=== PATIENT | male | born 2000 | race Caucasian/White ===

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

== ENCOUNTER → 2022-02-27 | Outpatient (CLI) | payer OTHER, SELFPAY ==
--- NOTE | 2022-02-27 16:28 | RAD_ITS ---
EXAM: XR LEFT HAND COMPLETE, 3 OR MORE VIEWS CLINICAL INDICATION: INFLAMMATORY POLYARTHRITIS TECHNIQUE: Frontal, lateral and oblique views of the left hand. This report was created using [employer] report generation technology. COMPARISON: None. FINDINGS: BONES/JOINTS: No periarticular erosion. No acute fracture. No subluxation. Normal alignment. Preservation of the joint space. No sclerotic or destructive changes observed. SOFT TISSUES: Mild periarticular soft tissue swelling. No radiopaque foreign body. RAD/Hand Min 3 Views IMPRESSION: Mild periarticular soft tissue swelling which may represent early changes of inflammatory arthritis. Electronically Signed: Suresh Maurice MD at 7:21 EDT ,
--- NOTE | 2022-02-27 16:28 | RAD_ITS ---
EXAM: XR RIGHT HAND COMPLETE, 3 OR MORE VIEWS CLINICAL INDICATION: INFLAMMATORY POLYARTHRITIS TECHNIQUE: Frontal, lateral and oblique views of the right hand. This report was created using [employer] report generation technology. COMPARISON: None. FINDINGS: BONES/JOINTS: Unremarkable. No acute fracture. No subluxation. Normal alignment. Preservation of the joint space. No periarticular erosion. No sclerotic or destructive changes observed. SOFT TISSUES: Periarticular soft tissue swelling is noted. No radiopaque foreign body. RAD/Hand Min 3 Views IMPRESSION: Periarticular soft tissue swelling which may represent early changes of inflammatory arthritis. Electronically Signed: Suresh Maurice MD at 7:20 EDT ,
[2022-02-27 17:32] LABS: Absolute Lymphocyte Count 2.47 X10^3/uL (0.83-4.51); Absolute Neutrophil Count 2.6 X10^3/uL (2.0-7.7); Basophil# 0.03 X10^3/uL; Basophil% 0.5 % (0-1); Eosinophil# 0.11 X10^3/uL; Eosinophils% 1.9 % (0-5); Hematocrit 43.3 % (40-54); Hemoglobin 15.1 g/dL (13.0-16.5); Lymphocyte # 2.47 X10^3/ul (0.83-4.51); Lymphocyte % 43.6 % (19-41); Mean Corp Hgb Conc 34.9 g/dL (32-36); Mean Corpuscular Hgb 30.1 pg (27.0-32.0); Mean Corpuscular Volume 86.3 fL (80-94); Mean Platelet Vol. 9.7 fl (6.2-12.0); Monocyte# 0.48 X10^3/uL; Monocyte% 8.5 % (0-10); NRBC Flagged by Analyzer 0 % (0-5); Neutrophil # 2.56 X10^3/uL (2.7-7.7); Neutrophil % 45.3 % (47-70); Platelet Count 285 K/mm3 (150-450); RBC Distribution Width CV 12.5 % (11.6-14.6); RBC Distribution Width SD 39.5 fl (35.1-43.9); Red Blood Count 5.02 M/mm3 (4.6-6.2); White Blood Count 5.7 K/mm3 (4.4-11.0)
[2022-02-27 18:04] LABS: ALB/GLOB Ratio 1.3 RATIO (0.9-2.4); AST(SGOT) 17 U/L (15-37); Alanine Aminotransfer ALT/SGPT 20 U/L (16-61); Albumin, Serum 4.4 g/dL (3.2-5.0); Alkaline Phosphatase 92 U/L (45-117); Anion Gap 8 (5-15); BUN 11 mg/dL (7-18); BUN/Creat Ratio 12.1 RATIO (10-20); Chloride 105 mmol/L (98-107); Creatinine, Serum 0.91 mg/dL (0.70-1.30); EST Glomerular Filtration Rate 113 mL/min (>60); Est Glom Filt Rate - Afr Amer 137 mL/min (>60); Globulin 3.3 g/dL (2.2-4.2); Glucose 89 mg/dL (74-106); Potassium 3.6 mmol/L (3.5-5.1); Protein, Total 7.7 g/dL (6.4-8.2); Rheumatoid Factor < 10.0 IU/mL (<15); Sodium Level 139 mmol/L (136-145)
[2022-03-02 12:10] LABS: ANTINUCLEAR ANTIBODIES DIRECT Negative (Negative)
== END | disposition home or self-care (01) ==
LOC: MTLAB 16:24
PROVIDERS: PCP Family Medicine; Referring Provider Family Medicine; Visit Provider Family Medicine
DX: M06.4 Inflammatory polyarthropathy (principal)
CPT/HCPCS: 36415; 73130; 80053; 85025; 86038; 86431

== ENCOUNTER → 2025-07-27 | Outpatient (CLI) | payer OTHER, SELFPAY ==
--- NOTE | 2025-07-27 13:52 | RAD_ITS ---
PROCEDURE: SHOULDER MIN 2 VIEWS 07/27/2025 REASON FOR EXAM: LEFT SHOULDER PAIN, DISLOCATION TECHNIQUE: Procedure Code: RADSH Modality: DX Procedure: SHOULDER MIN 2 VIEWS Laterality: Left shoulder. COMPARISON: None FINDINGS: Bones: No fracture seen. Joints: Normal alignment of the acromioclavicular and glenohumeral joints. Soft tissues: Focal calcific tendinitis. Other: RAD/Shoulder min 2 Views IMPRESSION: Calcific tendinitis. Reading Location: [id number]
--- OUTSIDE RECORDS SUMMARY | 2025-07-27 20:07 | XMS RPT_ITS | CCD ---
Author Organization [facility] Care Team Providers Care [address] Bailiff Name Role Phone MOJGAN HUSSEIN (MOHSEN) Unavailable UnavailLAYTON Zhu Unavailable Unavailable PENA, LAWRENCE Unavailable Unavailable PENA, LAWRENCE Unavailable Unavailable PENA, LAWRENCE Unavailable Unavailable MASCHKE, LEV Unavailable Unavailable PENA, LAWRENCE Unavailable Unavailable MASCHKE, LEV Unavailable Unavailable MASCHKE, LEV Unavailable Unavailable SILVERIO, MAYANK Unavailable Unavailable REFERRED, SELF Unavailable Unavailable SILVERIO, MAYANK Unavailable Unavailable Steven Bowles Referring Unavailable Steven Bowles Attending Unavailable Steven Bowles Primary Care Unavailable Problems Problem Classification Problem Date Documented Da te Episodic/Chronic Fracture of upper limb (1 source) Displaced fracture (avulsion) of medial epicondyle of left humerus, subsequent encounter for fracture with routine healing; Translations: [Displaced fracture (avulsion) of medial epicondyle of left humerus, subsequent encounter for fracture with routine healing] Onset: 05-20-2018 Episodic Joint disorders and dislocations; trauma-related (1 source) Unspecified dislocation of left ulnohumeral joint, subsequent encounter; Translations: [Unspecified dislocation of left ulnohumeral joint, subsequent encounter] Onset: 03-21-2018 Episodic Rheumatoid arthritis and related disease (1 source) Inflammatory polyarthropathy; Translations: [Inflammatory polyarthropathy] Onset: 09-19-2022 Chronic Unclassified (1 source) Unknown / UNK(Unknown) Onset: 02-25-2018 Results Test Name Value Interpretation Reference Range Facility ANTINUCLEAR ANTIBODIES DIREC Ton 03-02-2022 ANALI,DIRECT Negative Normal Negative [facility] Comment on above: Order Comment: Order Date: 02/27/22 Order Info: 0270-1 - ANALI Comments: with reflex comprehensive panel if positive Result Comment: Perf ormed at: - [facility] [address] [id number] Consulting Services Manager: Darwin Moody PhD, Phone: [phone] Performed By: #### L 100.0100, L500.4050, L505.7010, L3100.5475 #### [facility] [address] [place], [address] CBC W/Diff, Automatedon 07- Absolute Lymph 2.47 X10 3/uL Normal 0.83-4.51 [facility] Comment on above: Order Comment: Order Date: 02/27/22 Order Info: 0184-1 - CBCD Performed By: #### L 100.0100, L500.4050, L505.7010, L3100.5475 #### [facility] [address] [place], [address] Absolute Neut 2.6 X10 3/uL Normal 2.0-7.7 [facility] Comment on above: Order Comment: Order Date: 02/27/22 Order Info: 0184-1 - CBCD Performed By: #### L 100.0100, L500.4050, L505.7010, L3100.5475 #### [facility] [address] [place], [address] Basophils/100 WBC (Bld) 0.5 % Normal 0-1 [facility] Comment on above: Order Comment: Order Date: 02/27/22 Order Info: 0184-1 - CBCD Performed By: #### L 100.0100, L500.4050, L505.7010, L3100.5475 #### [facility] [address] [place], [address] Eosinophils/100 WBC (Bld) 1.9 % Normal 0-5 [facility] Comment on above: Order Comment: Order Date: 02/27/22 Order Info: 0184-1 - CBCD Performed By: #### L 100.0100, L500.4050, L505.7010, L3100.5475 #### [facility] [address] [place], [address] Erythrocyte distribution width (RBC) [Ratio] 12.5 % Normal 11.6-14.6 [facility] Comment on above: Order Comment: Order Date: 02/27/22 Order Info: 0184-1 - CBCD Performed By: #### L 100.0100, L500.4050, L505.7010, L3100.5475 #### [facility] [address] [place], [address] Hematocrit (Bld) [Volume fraction] 43.3 % Normal 40-54 [facility] Comment on above: Order Comment: Order Date: 02/27/22 Order Info: 0184-1 - CBCD Performed By: #### L 100.0100, L500.4050, L505.7010, L3100.5475 #### [facility] [address] [place], [address] Hemoglobin (Bld) [Mass/Vol] 15.1 g/dL Normal 13.0-16.5 [facility] Comment on above: Order Comment: Order Date: 02/27/22 Order Info: 0184-1 - CBCD Performed By: #### L 100.0100, L500.4050, L505.7010, L3100.5475 #### [facility] [address] [place], [address] IG% 0.200 Normal 0.0-0.9 [facility] Comment on above: Order Comment: Order Date: 02/27/22 Order Info: 0184-1 - CBCD Result Comment: IG% - Immature Granulocytes (promyelocytes, myelocytes and metamyelocytes) > 1% indicates that a LEFT SHIFT is Present. Performed By: #### L 100.0100, L500.4050, L505.7010, L3100.5475 #### [facility] [address] [place], [address] Lymphocytes/100 WBC (Bld) 43.6 % High 19-41 [facility] Comment on above: Order Comment: Order Date: 02/27/22 Order Info: 0184-1 - CBCD Performed By: #### L 100.0100, L500.4050, L505.7010, L3100.5475 #### [facility] [address] [place], [address] MCH (RBC) [Entitic mass] 30.1 pg Normal 27.0-32.0 [facility] Comment on above: Order Comment: Order Date: 02/27/22 Order Info: 0184-1 - CBCD Performed By: #### L 100.0100, L500.4050, L505.7010, L3100.5475 #### [facility] [address] [place], [address] MCHC (RBC) [Mass/Vol] 34.9 g/dL Normal 32-36 [facility] Comment on above: Order Comment: Order Date: 02/27/22 Order Info: 018-1 - CBCD Performed By: #### L 100.0100, L500.4050, L505.7010, L3100.5475 #### [facility] [address] [place], [address] MCV (RBC) [Entitic vol] 86.3 fL Normal 80-94 [facility] Comment on above: Order Comment: Order Date: 02/27/22 Order Info: 0184-1 - CBCD Performed By: #### L 100.0100, L500.4050, L505.7010, L3100.5475 #### [facility] [address] [place], [address] Monocytes/100 WBC (Bld) 8.5 % Normal 0-10 [facility] Comment on above: Order Comment: Order Date: 02/27/22 Order Info: 0184-1 - CBCD Performed By: #### L 100.0100, L500.4050, L505.7010, L3100.5475 #### [facility] [address] [place], [address] Neutrophils/100 WBC (Bld) 45.3 % Low 47-70 [facility] Comment on above: Order Comment: Order Date: 02/27/22 Order Info: 0184- - CBCD Performed By: #### L 100.0100, L500.4050, L505.7010, L3100.5475 #### [facility] [address] [place], [address] Nucleated RBC (Bld) [#/Vol] 0 10*3/uL Normal 0-5 [facility] Comment on above: Order Comment: Order Date: 02/27/22 Order Info: 018- - CBCD Performed By: #### L 100.0100, L500.4050, L505.7010, L3100.5475 #### [facility] [address] [place], [address] Platelet mean volume (Bld) [Entitic vol] 9.7 fL Normal 6.2-12.0 [facility] Comment on above: Order Comment: Order Date: 02/27/22 Order Info: 018- - CBCD Performed By: #### L 100.0100, L500.4050, L505.7010, L3100.5475 #### [facility] [address] [place], [address] Platelets (Bld) [#/Vol] 285 10*3/uL Normal 150-450 [facility] Comment on above: Order Comment: Order Date: 02/27/22 Order Info: 018-1 - CBCD Performed By: #### L 100.0100, L500.4050, L505.7010, L3100.5475 #### [facility] [address] [place], [address] RBC (Bld) [#/Vol] 5.02 10*6/uL Normal 4.6-6.2 [facility] Comment on above: Order Comment: Order Date: 02/27/22 Order Info: 0184-1 - CBCD Performed By: #### L 100.0100, L500.4050, L505.7010, L3100.5475 #### [facility] [address] [place], [address] RDW SD 39.5 fl Normal 35.1-43.9 [facility] Comment on above: Order Comment: Order Date: 02/27/22 Order Info: 0184-1 - CBCD Performed By: #### L 100.0100, L500.4050, L505.7010, L3100.5475 #### [facility] [address] [place], [address] WBC (Bld) [#/Vol] 5.7 10*3/uL Normal 4.4-11.0 [facility] Comment on above: Order Comment: Order Date: 02/27/22 Order Info: 0184-1 - CBCD Performed By: #### L 100.0100, L500.4050, L505.7010, L3100.5475 #### [facility] [address] [place], [address] Comprehensive Metabolic Prof ilon 02-27-2022 Albumin [Mass/Vol] 4.4 g/dL Normal 3.2-5.0 [facility] Comment on above: Order Comment: Order Date: 02/27/22 Order Info: 0786-1 - CMP Order Info: [id number] - RA with reflex comprehensive panel if positive Performed By: #### L 100.0100, L500.4050, L505.7010, L3100.5475 #### [facility] [address] [place], [address] Albumin/Globulin [Mass ratio] 1.3 {ratio} Normal 0.9-2.4 [facility] Comment on above: Order Comment: Order Date: 02/27/22 Order Info: 0786-1 - CMP Order Info: 02653-9 - RA with reflex comprehensive panel if positive Performed By: #### L 100.0100, L500.4050, L505.7010, L3100.5475 #### [facility] [address] [place], [address] ALK P 92 U/L Normal 45-117 [facility] Comment on above: Order Comment: Order Date: 02/27/22 Order Info: 0786-1 - CMP Order Info: 27549-8 - RA with reflex comprehensive panel if positive Performed By: #### L 100.0100, L500.4050, L505.7010, L3100.5475 #### [facility] [address] [place], [address] ALT [Catalytic activity/Vol] 20 U/L Normal 16-61 [facility] Comment on above: Order Comment: Order Date: 02/27/22 Order Info: 0786-1 - CMP Order Info: 50371-4 - RA with reflex comprehensive panel if positive Performed By: #### L 100.0100, L500.4050, L505.7010, L3100.5475 #### [facility] [address] [place], [address] AST [Catalytic activity/Vol] 17 U/L Normal 15-37 [facility] Comment on above: Order Comment: Order Date: 02/27/22 Order Info: 0786-1 - CMP Order Info: 43371-7 - RA with reflex comprehensive panel if positive Performed By: #### L 100.0100, L500.4050, L505.7010, L3100.5475 #### [facility] [address] [place], [address] Bilirubin [Mass/Vol] 0.40 mg/dL Normal 0.20-1.00 [facility] Comment on above: Order Comment: Order Date: 02/27/22 Order Info: 0786-1 - CMP Order Info: 52786-4 - RA with reflex comprehensive panel if positive Result Comment: For patients on eltrombopag therapy, use of Dimension [place] TBIL is not recommended. Performed By: #### L 100.0100, L500.4050, L505.7010, L3100.5475 #### [facility] [address] [place], [address] BUN/CRE 12.1 RATIO Normal 10-20 [facility] Comment on above: Order Comment: Order Date: 02/27/22 Order Info: 0786-1 - CMP Order Info: 59103-1 - RA with reflex comprehensive panel if positive Performed By: #### L 100.0100, L500.4050, L505.7010, L3100.5475 #### [facility] [address] [place], [address] CA,Total 9.0 mg/dL Normal 8.5-10.1 [facility] Comment on above: Order Comment: Order Date: 02/27/22 Order Info: 0786-1 - CMP Order Info: 93558-8 - RA with reflex comprehensive panel if positive Performed By: #### L 100.0100, L500.4050, L505.7010, L3100.5475 #### [facility] [address] [place], [address] Chloride [Moles/Vol] 105 mmol/L Normal 98-107 [facility] Comment on above: Order Comment: Order Date: 02/27/22 Order Info: 0786-1 - CMP Order Info: 35829-1 - RA with reflex comprehensive panel if positive Performed By: #### L 100.0100, L500.4050, L505.7010, L3100.5475 #### [facility] [address] [place], [address] CO2 [Moles/Vol] 26.0 mmol/L Normal 21.0-32.0 [facility] Comment on above: Order Comment: Order Date: 02/27/22 Order Info: 0786-1 - CMP Order Info: 48306-8 - RA with reflex comprehensive panel if positive Performed By: #### L 100.0100, L500.4050, L505.7010, L3100.5475 #### [facility] [address] [place], [address] Creatinine [Mass/Vol] 0.91 mg/dL Normal 0.70-1.30 [facility] Comment on above: Order Comment: Order Date: 02/27/22 Order Info: 0786-1 - [facility] Order Info: 64718-9 - RA with reflex comprehensive panel if positive Result Comment: The validity of the calculated GFR GFRAA in patients over 70 years has not been determined. Clinical correlation is essential. Performed By: #### L 100.0100, L500.4050, L505.7010, L3100.5475 #### [facility] [address] [place], [address] EST GFR - AA 137 mL/min Normal >60 [facility] Comment on above: Order Comment: Order Date: 02/27/22 Order Info: 0786-1 - [facility] Order Info: 03432-1 - RA with reflex comprehensive panel if positive Result Comment: Afri can [place] GFR Calc Performed By: #### L 100.0100, L500.4050, L505.7010, L3100.5475 #### [facility] [address] [place], [address] GAP 8 Normal 5-15 [facility] Comment on above: Order Comment: Order Date: 02/27/22 Order Info: 0786-1 - CMP Order Info: 12656-1 - RA with reflex comprehensive panel if positive Performed By: #### L 100.0100, L500.4050, L505.7010, L3100.5475 #### [facility] [address] [place], [address] GFR/1.73 sq M.predicted among non-blacks MDRD (S/P/Bld) [Vol rate/Area] 113 mL/min/{1.73_m2} Normal >60 [facility] Comment on above: Order Comment: Order Date: 02/27/22 Order Info: 0786-1 - CMP Order Info: 63663-1 - RA with reflex comprehensive panel if positive Result Comment: Non- GFR Calc Performed By: #### L 100.0100, L500.4050, L505.7010, L3100.5475 #### [facility] [address] [place], [address] Globulin (S) [Mass/Vol] 3.3 g/dL Normal 2.2-4.2 [facility] Comment on above: Order Comment: Order Date: 02/27/22 Order Info: 0786-1 - CMP Order Info: 66811-1 - RA with reflex comprehensive panel if positive Performed By: #### L 100.0100, L500.4050, L505.7010, L3100.5475 #### [facility] [address] [place], [address] Glucose [Mass/Vol] 89 mg/dL Normal 74-106 [facility] Comment on above: Order Comment: Order Date: 02/27/22 Order Info: 0786-1 - CMP Order Info: 30946-8 - RA with reflex comprehensive panel if positive Performed By: #### L 100.0100, L500.4050, L505.7010, L3100.5475 #### [facility] [address] [place], [address] Potassium [Moles/Vol] 3.6 mmol/L Normal 3.5-5.1 [facility] Comment on above: Order Comment: Order Date: 02/27/22 Order Info: 0786-1 - CMP Order Info: 24165-2 - RA with reflex comprehensive panel if positive Performed By: #### L 100.0100, L500.4050, L505.7010, L3100.5475 #### [facility] [address] [place], [address] Sodium [Moles/Vol] 139 mmol/L Normal 136-145 [facility] Comment on above: Order Comment: Order Date: 02/27/22 Order Info: 0786-1 - CMP Order Info: 02692-1 - RA with reflex comprehensive panel if positive Performed By: #### L 100.0100, L500.4050, L505.7010, L3100.5475 #### [facility] [address] [place], [address] T PROT 7.7 g/dL Normal 6.4-8.2 [facility] Comment on above: Order Comment: Order Date: 02/27/22 Order Info: 0786-1 - CMP Order Info: 07733-0 - RA with reflex comprehensive panel if positive Performed By: #### L 100.0100, L500.4050, L505.7010, L3100.5475 #### [facility] [address] [place], [address] Urea nitrogen [Mass/Vol] 11 mg/dL Normal 7-18 [facility] Comment on above: Order Comment: Order Date: 02/27/22 Order Info: 0786-1 - CMP Order Info: 89593-6 - RA with reflex comprehensive panel if positive Performed By: #### L 100.0100, L500.4050, L505.7010, L3100.5475 #### [facility] [address] [place], [address] Hand Min 3 Viewson [address] [facility] Imaging Services [address] [place] [address] Hand Min 3 Views MR#: [id number] Acct: [id number] Name: BRITT GUTIERREZ Rep #: [id number] : 2000 M 21 From: Suresh Maurice MD PCP: Dr. Steven Bowles MD Status: REG CLI Study: Hand Min 3 Views Date of Exam: 02/27/22 Exam# [id number] Ordering Dr: Steven Bowles MD EXAM: XR RIGHT HAND COMPLETE, 3 OR MORE VIEWS CLINICAL INDICATION: INFLAMMATORY POLYARTHRITIS TECHNIQUE: Frontal, lateral and oblique views of the right hand. This report was created using Herrenschmiede report generation technology. COMPARISON: None. FINDINGS: BONES/JOINTS: Unremarkable. No acute fracture. No subluxation. Normal alignment. Preservation of the joint space. No periarticular erosion. No sclerotic or destructive changes observed. SOFT TISSUES: Periarticular soft tissue swelling is noted. No radiopaque foreign body. RAD/Hand Min 3 Views IMPRESSION: Periarticular soft tissue swelling which may represent early changes of inflammatory arthritis. Electronically Signed: Suresh Maurice MD at 7:20 EDT Reading Location ID and State: [facility] / [place] Tel , Service support , CC: Dr. Steven Bowles MD Engineering Technical Specialist: Signed Normal [facility] Hand Min 3 Views [facility] Imaging Services [address] [place] [address] Hand Min 3 Views MR#: [id number] Acct: [id number] Name: BRITT GUTIERREZ Rep #: [id number] : 2000 M 21 From: Suresh Maurice MD PCP: Dr. Steven Bowles MD Status: REG CLI Study: Hand Min 3 Views Date of Exam: 02/27/22 Exam# [id number] Ordering Dr: Steven Bowles MD EXAM: XR LEFT HAND COMPLETE, 3 OR MORE VIEWS CLINICAL INDICATION: INFLAMMATORY POLYARTHRITIS TECHNIQUE: Frontal, lateral and oblique views of the left hand. This report was created using Herrenschmiede report generation technology. COMPARISON: None. FINDINGS: BONES/JOINTS: No periarticular erosion. No acute fracture. No subluxation. Normal alignment. Preservation of the joint space. No sclerotic or destructive changes observed. SOFT TISSUES: Mild periarticular soft tissue swelling. No radiopaque foreign body. RAD/Hand Min 3 Views IMPRESSION: Mild periarticular soft tissue swelling which may represent early changes of inflammatory arthritis. Electronically Signed: Suresh Maurice MD at 7:21 EDT Reading Location ID and State: [facility] / [place] Tel , Service support , CC: Dr. Steven Bowles MD Engineering Technical Specialist: Signed Normal [facility] Rheumatoid Factoron 02-28-20 22 RHEUMATOID FAC < 10.0 Normal <15 [facility] Comment on above: Order Comment: Order Date: 02/27/22 Order Info: 0786-1 - CMP Order Info: [id number] - RA with reflex comprehensive panel if positive Performed By: #### L 100.0100, L500.4050, L505.7010, L3100.5475 #### [facility] [address] [place], [address] CNOVon 05-20-2018 CNOV Office Visit (ORTHBE) -------BRITT GUTIERREZ ([id number]) 4 MDate Time Provider Zjilmhkyrv85/8/18 2:30 PM LEV VILLA During your visit today, we recorded the following information about you:Lev Villa MD 05/20/2018 3:35 PM SignedFollow up: L elbowHPI: Mr. Gutierrez is following up for L elbow contracture s/p dislocation. Lastvisit we provided motion program. The current symptoms are improved butcontinues to be limited overall with motion. Ulnar nerve sx resolved.No past medical history on file.No current outpatient prescriptions on file.No current facility-administered medications for this visit.ALLERGIESNo Known AllergiesAll medical history, medications and allergies have been discussed with thepatient today.ROS:REVIEW OF SYMPTOMS:Constitutional: patient denies any recent fever or significant change in weightGastrointestinal: patient denies any current abdominal discomfortMusculoskeletal: as noted in the HPINeurologic: as noted in the HPISOCIAL HISTORY:Tobacco Use: NeverPatient reports no change in past medical AND surgical history, medications,allergies, social history, family history and review of systems since lastvisit.Physical Examination: Mr.. Gutierrez is a healthy appearing male in no acutedistress. Bilateral upper limbs have equal and intact peripheral pulses. Skindoes not demonstrate any rashes or lesions. Elbow ROM: 50-120, 80/80. NegTinels ulnar nerve - sensation and motor intact.X-Ray: Mild HO, reduced jointAssessment: Dislocation of left elbow, subsequent encounter (primary encounterdiagnosis)Entrapme nt of left ulnar nerveClosed displaced avulsion fracture of medial epicondyle of left humerus withroutine healing, subsequent encounterPlan: I discussed with Mr.. Gutierrez and his mother the diagnosis and differenttreatment options. He is seeing progress and will continue to work on motion.RTC [address] scan to evaluate HO and if still limited in motion considersurgical intervention.Lev Villa MDMayober 2017 3:31 PMReferring Provider: SELF [200]Allergies As of Date: 05/20/2018(No Known Allergies)Date Reviewed: 05/20/2018Reviewed by: Lev Villa - Fully AssessedReason for Visit: Established Patient [175]Primary Visit Diagnosis:Dislocation of left elbow, subsequent encounter [S53.105D] Other Visit Diagnoses:Entrapment of left ulnar nerve [G56.22] Closed displaced avulsion fracture of medial epicondyle of left humerus with routine healing, subsequent encounter [S42.442D]Order(s):CT ELBOW WO IVCON LT [[id number]] Order #: [id number] FUTUREProblem List As Of Date 05/20/2018 Noted Resolved Fracture of humerus, medial epicondyle [S42.443*INVALID FOR* Elbow dislocation [S53.106A] INVALID FOR*Letter CHRISTIANA Yorkirector, Hand AND Upper Extremity CenterDepartment of Orthopaedic Surgery / [id number] [place] [id number]: [phone] appts. [phone]) or [phone]05/20/2018RE: Britt Gutierrez [id number] Whom It May Concern:Pt was seen in the office today for follow up. Please excuse him from hisclasses. If you have any questions please do not hesitate to contact ouroffice.Sincerely,Lev Villa MDEncounter Number: [id number] Status:Closed by LEV VILLA MD on 05/20/18 Normal [facility] PROGRESSon 05-20-2018 Protein mass conc HNO ID: [id number] thor: Lev Chatmanervice: (none)Author Type: PhysicianType: Progress NotesFiled: 05/20/2018 3:35 PMNote Text:Follow up: L elbowHPI: Mr. 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 The current symptoms are improvedbut continues to be limited overall with motion. Ulnar nerve sx resolved.No past medical history on file.No current outpatient prescriptions on file.No current facility-administered medications for this visit.ALLERGIESNo Known AllergiesAll medical history, medications and allergies have been discussed withthe patient today.ROS:REVIEW OF SYMPTOMS:Constitutional: patient denies any recent fever or significant change inweightGastrointestinal: patient denies any current abdominal discomfortMusculoskeletal: as noted in the HPINeurologic: as noted in the HPISOCIAL HISTORY:Tobacco Use: NeverPatient reports no change in past medical AND surgical history, medications,allergies, social history, family history and review of systems since lastvisit.Physical Examination: Mr.. Gutierrez is a healthy appearing male in no acutedistress. Bilateral upper limbs have equal and intact peripheral pulses.Skin does not demonstrate any rashes or lesions. Elbow ROM: 50-120,80/80. Neg Tinels ulnar nerve - sensation and motor intact.X-Ray: Mild HO, reduced jointAssessment: Dislocation of left elbow, subsequent encounter (primaryencounter diagnosis)Entrapment of left ulnar nerveClosed displaced avulsion fracture of medial epicondyle of left humeruswith routine healing, subsequent encounterPlan: I discussed with Mr.. Gutierrez and his mother the diagnosis anddifferent treatment options. He is seeing progress and will continue towork on motion. RTC [address] scan to evaluate HO and if stilllimited in motion consider surgical intervention.Lev Villa MDOctober 2017 3:31 PM Normal [facility] Protein mass conc HNO ID: [id number] thor: Loni (Rt) Emmett Macedo: (none)Author Type: TechnicianType: Progress NotesFiled: 05/20/2018 2:43 PMNote Text: Radiology Service Progress NotePATIENT NAME: Britt ShoemakerN: [id number] OF SERVICE: May 20, 2018TIME: 2:43 PMPATIENT IDENTITY VERIFICATION COMPLETED USING TWO (2) METHODS: Patientconfirmed name verbally and ID band matches. and Patient confirmed nameverbally.PATIENT GENDER DATA: MalePATIENT RELEVANT IMPLANT DATA REVIEWED: YesRADIOLOGY DEPARTMENT: General X-ray: Exam(s) Completed: Upper ExtremityX-Ray(s): Elbow, left :PERIPHERAL IV DATA: Not applicableSIGNED BY: RT SonidoOct2017 2:43 PM Normal [facility] XR ELBOW 2V AP/LAT LTon -0 XR ELBOW 2V AP/LAT LT * * *Final Report* * *DATE OF EXAM: May 20 2018 2:32PM [address] - XR ELBOW 2V AP/LAT LT / REASON: multiple diagnoses * * * * Physician Interpretation * * * * EXAMINATION: XR ELBOW 2V AP/LAT LTREASON FOR EXAM: Closed displaced avulsion fracture of medial epicondyle of left humerus with routine healing, subsequent encounter Dislocation of left elbow, subsequent encounterTECHNIQUE: XR ELBOW 2V AP/LAT LTCOMPARISON: Elbow radiographs, 03/21/2018; MRI elbow, 03/25/2018FINDINGS:Evaluati on is limited due to the obliquity of the frontal view though this is reportedly related to the patient's inability to straighten the elbow. The previously described avulsion fractures involving the medial and lateral epicondyles are not optimally evaluated. The overall appearance of the lateral view has not substantially changed. There is redemonstration of thin osseous densities along the posterior aspect of the olecranon and evidence of callus formation along the distal humerus. Mild surrounding soft tissue swelling.IMPRESSION:Fairly limited evaluation of the previously shown medial and lateral epicondyle avulsion fractures. No overt change on the lateral view.Engineering Technical Specialist: AVERY Transcribe Date/Time: May 20 2018 2:51PDictated by : Yvrose VELÁSQUEZ examination was interpreted and the report reviewed and electronically signed by: MEME OSEGUERA DO on May 20 2018 2:55PM [id number] Normal [facility] CNOVon 04-08-2018 CNOV Office Visit (ORTHBE) -------BRITT GUTIERREZ ([id number]) 4 MDate Time Provider Department04/08/18 2:45 PM LEV VILLA During your visit today, we recorded the following information about you:Lev Villa MD 04/08/2018 4:25 PM SignedNew patient referred by Dr. Lawrence Pena for left elbow concerns. We willcorrespond with Dr. Lawrence Pena via a shared medical record and a copy ofthis office note.HPI: Mr. 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 The symptoms started 6weeks ago. Suffered fall from tree on trampoline resulting in left elbowfracture dislocation of medial epicondyle. Reduce in ED that day, 02/22. He wasonly immobilized for less than a week then started OT for ROM. He has regainednear full flexion but unable to extend elbow. States that with attemptedextension he gets pain over the medial elbow and parathesias into is ulnar 2digits of the hand. With deep elbow flexion he has paresthesias along ulnarforearm only. Evaluation to date has included Orthopaedic PA and MD (Dr Annemarie Aguayo). Treatment to date has included OT. The symptoms are improved byrest and exacerbated by terminal extension. The current symptoms are rated a1/10 and interfere with work, farming, bow hunting.He is otherwise healthyNo past medical history on file.No current outpatient prescriptions on file.No current facility-administered medications for this visit.ALLERGIESNo Known AllergiesAll medical history, medications and allergies have been discussed with thepatient today.ROS:REVIEW OF SYSTEMS:Constitutional: patient denies any recent fever or significant change in weightCardiovascular: patient denies any chest pain at restRespiratory: patient denies any shortness of breath or coughGastrointestinal: patient denies any current abdominal discomfortIntegumentary: patient denies any recent skin changesMusculoskeletal: as noted in the HPINeurologic: as noted in the HPIEndocrine: patient denies a current diagnosis of diabetesHematologic/Lymphat ic: patient denies any easily bleeding, any recent infectionand denies any recent observable lymph node enlargementPsychologic: negative for any recent depression or anxiety issuesSOCIAL HISTORY:Tobacco Use: NeverFAMILY HISTORY:No family history on file.Patient reports no change in past medical AND surgical history, medications,allergies, social history, family history and review of systems since lastvisit.Physical Examination: Mr.. Gutierrez is a healthy appearing male in no acutedistress. Bilateral upper limbs have equal and intact peripheral pulses. Skindoes not demonstrate any rashes or lesions. Cervical spine has full pain freeROM and no tenderness to palpation. Shoulders have pain free range of motion.Elbow with passive=active motion flex/ext arc 60-130. Terminal extension causeparesthesias in ulnar nerve distribution. +tinel over fracture site and cubitaltunnel region. Terminal flexion with parathesias in medial antibrachialdistribution. Full pronosupination. 5/5 strength toflex/ext/pronosupinaiton/ wrist flex/wrist ext/truck greaser. Sensation intact to lighttouch over M/U/R distributions. No elbow instability but difficult to testgiven lack of extension.X-Ray: Review elbow and wrist XR from date of injury. Medial epicondylefracture dislocation that was well reduced on post-reduction films. MR showsmedial epicondyle is displace distal and posterior and the ulnar nerve is beingpushed ot of the cubital tunnel region. No obvious HO present on MR. New XR ofelbow obtained today in clinic and review. Callus formation at the medialepicondyle fracture site consistent with healing, still distalized. On lateralthere appears to be some capsular HO along anterior humerus.Assessment: Closed displaced avulsion fracture of medial epicondyle of lefthumerus, initial encounterDislocation of left elbow, initial encounterPlan: I discussed with Mr.. Gutierrez and his mother the diagnosis and differenttreatment options. He appears to have developed a neurogenic contraction of theelbow from ulnar nerve irritation or scarring at the medial epicondyle from thedistal migration. Options include observation with continued stretching to seein regains motion over the next 6 weeks and nerve irritation improves versussurgical decompression of ulnar nerve +/- ORIF medial epicondyle ifdestabilized and soft tissue release. He and his mother elected to attemptanother 6 weeks of ROM and stretching. Plan for RTC in 6 weeks if noimprovement with new xray.Trista Paredes 2017 4:00 PMReferring Provider: LAWRENCE PENA [[id number]]Allergies As of Date: 04/08/2018(No Known Allergies)Date Reviewed: 04/08/2018Reviewed by: Lev Villa - Fully AssessedReason for Visit: New Patient [172] Cmt: left elbowVisit Diagnoses:Closed displaced avulsion fracture of medial epicondyle of left humerus, initial encounter [S42.442A] Dislocation of left elbow, initial encounter [S53.105A]Problem List As Of Date 04/08/2018 Noted Resolved Fracture of humerus, medial epicondyle [S42.443*INVALID FOR* Elbow dislocation [S53.106A] INVALID FOR*Letter Ana RosateCHRISTIANA Benedictirector, Hand AND Upper Extremity CenterDepartment of Orthopaedic Surgery / [id number] [place] [id number]: [phone] appts. [phone]-[facility](3644) or [phone]04/08/2018RE: Britt Gutierrez [id number] Whom It May Concern:Britt Gutierrez had an appointment in the Orthopaedic Surgery office on 04/08/18or his injury.Please excuse him from any school related activities for the day of 04/08/18.Sincerely,Lev Villa MDEncounter Number: [id number] Status:Closed by LEV VILLA MD on 04/08/18 Normal [facility] PROGRESSon 04-08-2018 Protein mass conc HNO ID: [id number] thor: Lev Chatmanervice: (none)Author Type: PhysicianType: Progress NotesFiled: 04/08/2018 4:25 PMNote Text:New patient referred by Dr. Lawrence Pena for left elbow concerns. Wewill correspond with Dr. 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 The symptomsstarted 6 weeks ago. Suffered fall from tree on trampoline resulting inleft elbow fracture dislocation of medial epicondyle. Reduce in ED thatday, 02/22. He was only immobilized for less than a week then started OTfor ROM. He has regained near full flexion but unable to extend elbow.States that with attempted extension he gets pain over the medial elbowand parathesias into is ulnar 2 digits of the hand. With deep elbowflexion he has paresthesias along ulnar forearm only. Evaluation to datehas included Orthopaedic PA and MD (Dr Pena in [facility]). Treatment todate has included OT. The symptoms are improved by rest and exacerbatedby terminal extension. The current symptoms are rated a 1/10 and interferewith work, farming, bow hunting.He is otherwise healthyNo past medical history on file.No current outpatient prescriptions on file.No current facility-administered medications for this visit.ALLERGIESNo Known AllergiesAll medical history, medications and allergies have been discussed withthe patient today.ROS:REVIEW OF SYSTEMS:Constitutional: patient denies any recent fever or significant change inweightCardiovascular: patient denies any chest pain at restRespiratory: patient denies any shortness of breath or coughGastrointestinal: patient denies any current abdominal discomfortIntegumentary: patient denies any recent skin changesMusculoskeletal: as noted in the HPINeurologic: as noted in the HPIEndocrine: patient denies a current diagnosis of diabetesHematologic/Lymphat ic: patient denies any easily bleeding, any recentinfection and denies any recent observable lymph node enlargementPsychologic: negative for any recent depression or anxiety issuesSOCIAL HISTORY:Tobacco Use: NeverFAMILY HISTORY:No family history on file.Patient reports no change in past medical AND surgical history, medications,allergies, social history, family history and review of systems since lastvisit.Physical Examination: Mr.. Gutierrez is a healthy appearing male in no acutedistress. Bilateral upper limbs have equal and intact peripheral pulses.Skin does not demonstrate any rashes or lesions. Cervical spine has fullpain free ROM and no tenderness to palpation. Shoulders have pain freerange of motion. Elbow with passive=active motion flex/ext arc 60-130.Terminal extension cause paresthesias in ulnar nerve distribution. +tinelover fracture site and cubital tunnel region. Terminal flexion withparathesias in medial antibrachial distribution. Full pronosupination. 5/5strength to flex/ext/pronosupinaiton/wr ist flex/wrist ext/truck greaser. Sensationintact to light touch over M/U/R distributions. No elbow instability butdifficult to test given lack of extension.X-Ray: Review elbow and wrist XR from date of injury. Medial epicondylefracture dislocation that was well reduced on post-reduction films. MRshowsuyapa medial epicondyle is displace distal and posterior and the ulnarnerve is being pushed ot of the cubital tunnel region. No obvious HOpresent on MR. New XR of elbow obtained today in clinic and review. Callusformation at the medial epicondyle fracture site consistent with healing,still distalized. On lateral there appears to be some capsular HO alonganterior humerus.Assessment: Closed displaced avulsion fracture of medial epicondyle ofleft humerus, initial encounterDislocation of left elbow, initial encounterPlan: I discussed with Mr.. Gutierrez and his mother the diagnosis anddifferent treatment options. He appears to have developed a neurogeniccontraction of the elbow from ulnar nerve irritation or scarring at themedial epicondyle from the distal migration. Options include observationwith continued stretching to see in regains motion over the next 6 weeksand nerve irritation improves versus surgical decompression of ulnar nerve+/- ORIF medial epicondyle if destabilized and soft tissue release. He andhis mother elected to attempt another 6 weeks of ROM and stretching. Planfor RTC in 6 weeks if no improvement with new xray.Lev Villa, DIMITRIOSugu 2017 4:00 PM Normal [facility] MRI ELBOW WO IVCON LTon - MRI ELBOW WO IVCON LT * * *Final Report* * *DATE OF EXAM: Mar 25 2018 8:55AM [address] 0188 - MRI ELBOW WO ESTHER LT / REASON: Pain in left elbow * * * * Physician Interpretation * * * * EXAM: MRI ELBOW WO ESTHER LTEXAM DATE: 03/25/2018 8:55 AMCLINICAL HISTORY: Pain in left elbowCOMPARISON: NoneTECHNIQUE: Routine MRI of the left elbow was performed.RESULT:Exam is limited as the patient's elbow was imaged in flexed position.Ulnar collateral ligament: There is diffuse thickening of the ulnar collateral ligament, compatible with sprain.Radial collateral ligament: There is tear at the radial head attachment which appears lifted up. The lateral ulnar collateral ligament of the radial collateral ligament is not well visualized at its ulnar attachment and likely tornLateral ulnar collateral ligament: within normal limits.Common extensor tendon: Thickened with increased T2 signal, compatible with sprainCommon flexor tendon: Signal on increased T2 signal, compatible with sprainBiceps tendon: within normal limits.Triceps tendon: within normal limits.Brachialis tendon: within normal limits.Articular cartilage: No defects or significant signal abnormality is noted within the articular cartilage of the ulnohumeral, radiocapitellar and proximal radioulnar joints.Muscles: Diffusely increased T2 signal within the pronator tares muscle..Bone marrow: There is avulsion fracture of the medial epicondyle of distal humerus. The bone fragment is mildly retracted distally. There is also avulsion fracture of the small lateral epicondyle of distal humerus which is in anatomic position without displacement. Marrow edema is present within the lateral condyle, capitellum, as well as the trochlea of the distal humerus. There is edema is also present within the olecranon of proximal ulna.Nerves: The ulnar nerve is visualized and demonstrates normal position, size and signal intensity. The radial and median nerves are partially seen and appear normal as well.Other: Small elbow joint effusion is present.IMPRESSION:1. Tear of the radial collateral ligament at the radial head attachment and the lateral ulnar collateral ligament at the ulna.2. Sprain of the ulnar collateral ligament3. Avulsion fractures of the medial and lateral epicondyles of distal humerus.4. Sprain of the common extensor and flexor tendons.5. Patchy marrow edema of the distal humerus and strain of the pronator muscle.Engineering Technical Specialist: AVERY Transcribe Date/Time: Mar 27 2018 9:01ADictated by : SHOBHA BRITT MDThisuyapa examination was interpreted and the report reviewed and electronically signed by: SHOBHA BRITT MD on Mar 29 2018 4:11PM [id number] Normal [facility] PROGRESSon 03-25-2018 Protein mass conc HNO ID: [id number] thor: Roland Mitchell RtService: (none)Author Type: (none)Type: Progress NotesFiled: 03/25/2018 8:40 AMNote Text: Radiology Service Progress NotePATIENT NAME: Britt Patel RadhaRN: [id number] OF SERVICE: March 25, 2018TIME: 8:40 AMPATIENT IDENTITY VERIFICATION COMPLETED USING TWO (2) METHODS: Patientconfirmed name verbally and Date of .PATIENT GENDER DATA: MalePATIENT RELEVANT IMPLANT DATA REVIEWED: YesRADIOLOGY DEPARTMENT: MR; Exam(s) Completed: Upper MSK: Elbow, leftPERIPHERAL IV DATA: Not applicableSIGNED BY: Roland Mitchell RtAugust 2017 8:40 AM Normal [facility] CNOVon 03-21-2018 CNOV Office Visit (EDUARD) -------BRITT GUTIERREZ ([id number]) 4 MDate Time Provider Department03/21/18 8:45 AM LAWRENCE PNEA During your visit today, we recorded the following information about you:Shwetha Muniz RN 03/21/2018 12:42 PM SignedAMB ROOMING INTAKE FLOWSHEET DATARisk ScreeningDo you have concerns about personal safety or safety in the home?: NoPainPain Score: (3-5)Pain Location: Elbow-LeftDescription: (sore)Duration Amount of Time: 3Duration Units: Weeks (6 days)Frequency: ContinuousIntervention: ColdPatient presents with:Recheck: 3 weeks 6 days post left elbow dislocation-see phone encounter, xrayPt. presents with mother. OT felt he has not been progressing as much ashoped, and is still at negative 60 ROM. He has been icing with some relief ofdiscomfort with ice, but has been taking nothing for pain.Lawrence Pena MD 03/21/2018 12:42 PM SignedLawrence Pena [facility] Centerment of GaecnxxtfhssOnjnjxcwxgnv[address] [place]Wkami [place] [address]Ykdw: [phone] Cadxji 2017CHIEF COMPLAINT: Recheck (3 weeks 6 days post left elbow dislocation-see phoneencounter, xray)HPI: Mr. Britt Gutierrez is a 17 year old male Who is just shy of 4 weeks statuspost elbow dislocation after he fell from a trampoline. He had been undergoingoccupational therapy and doing relatively well, however he had a bit of asetback from his early gains. He is having a difficult time with extension.Occupational therapist thought he should be doing better at this time and ishere for earlier follow-up. He's been icing and going through his motionprogram. Elbow was reported as sore and painful between 3 and 5 out of 10depending on his activities. He does report some very mild and at timestingling in the small and ring fingers but this is more dependent on somedifferent positions and motions of the arm.ASSESSMENT:S53.105A Dislocation of left elbow, initial encounter (primary encounterdiagnosis)M25.622 Elbow stiffness, leftG56.22 Ulnar neuropathy at elbow of left upper extremityPLAN:Though his ulnar nerve symptoms are rather minor, with his setback with motion,and somewhat of a mechanical block feeling to the elbow, my recommendation isfor an MRI. I will review his case with Dr. Villa, And likely get up to seehim for further care.FOLLOW UP INSTRUCTIONS:Plan as above, we will discuss with the family after I review the case.OBJECTIVE:Mr. Britt Gutierrez is a pleasant 17 year old in no apparent distress.Gen:There were no vitals taken for this visit. nl development, non obese, nodeformitiesENT: Normocephalic, normal hearing, moist mucosaCV: Pulses:Radial= 2+ and symmetric, capillary refill < 2 secs, no peripheraledema/varicositie sSkin: no rash, bruising or lesions. Good turgor.Psych: cooperative and appropriate, alert and oriented x 3, good mood andaffect.Musculoskeletal:L eft elbow with some mild persistent swelling over the medial elbow andresolving ecchymoses in the distal brachium and upper forearm. He is mildlytender but not too bad about the bony landmarks. He has rather good flexionwith only lacking 20?Of terminal. Extension however is quite limited at about50 or 60? lacking full extension. Pronation and supination is rather good inthe forearm. Subjectively, sensation is intact in the median, and ulnar nervedistribution. Wrist flexion extension, finger abduction and adduction appearintact as well.IMAGING:IMPRESSION: Limited study due to patient positioning. ?Periosteal newbone formation suggests healing of a distal humeral fracture as well asan avulsion fracture of the medial epicondyle. ?Comparison with prioroutside radiographs would be helpful to fully evaluate the originalfracture.Transcript ionist: AVERY ?Transcribe Date/Time: Mar ?9:08ADictated by : ROSELYN DANIELSON MDThis examination was interpreted and the report reviewed andelectronically signed by:ROSELYN DANIELSON MD on Mar ?9:10AM ?ESTResults-Findings* * *Final Report* * *DATE OF EXAM: Mar ?8:07AM ?WRX ? 5322 ?- ?XR ELBOW 2V AP/LAT LT ?/ REASON: Unspecified dislocation of left ulnohumeral joint,subsequent encounter?? ?* * * * Physician Interpretation * * * *?TECHNIQUE: ? ? ?XR ELBOW 2V AP/LAT LT -EXAM DATE: ?03/21/2018 8:07 AMCLINICAL HISTORY: ?Unspecified dislocation of left ulnohumeral joint,subsequent encounterCOMPARISON: NoneFINDINGS: The study is markedly limited due to positioning on the APview. ?The patient is unable to straighten the arm. ?There is an evulsionfracture of the medial epicondyles with adjacent soft tissue swelling andperiosteal new bone formation. ?In addition, there is periosteal new boneinformation along the distal humerus.Supporting Subjective Information Below:Past Medical History: No past medical history on file.Past Surgical History:PAST SURGICAL HISTORYProcedure Laterality Date- TONSILLECTOMY HXFamily History: No family history on file.Social History:Social History Marital status: Single Spouse name: Years of education: Number of children:Social History Main Topics Smoking status: Never Smoker Smokeless tobacco: Never Used Alcohol use: No Drug use: NoMedications:No current outpatient prescriptions on file.No current facility-administered medications for this visit.Allergies: Patient has no known allergies.ROS:General (negative for fatigue, malaise, weight loss/gain)HEENT (negative for headache, earache, recent vision changes, sinus pain, sorethroat) Respiratory (no recent shortness of breath, hemoptysis)CV (negative for chest tightness, palpitations)Musculoskeleta l (see HPI)Psych (no depression, anxiety)This note was partially generated using adQ voice recognition system, andthere may be some incorrect words, spellings, and punctuation that were notnoted in checking the note before saving.Rebekah Nolasco MD 03/21/2018 12:43 PM SignedAddended by: LAWRENCE PENA MD on: 03/21/2018 12:43 PM Modules accepted: OrdersReferring Provider: SELF [[id number]]Allergies As of Date: 03/21/2018(No Known Allergies)Date Reviewed: 03/21/2018Reviewed by: Lawrence Pena - Fully AssessedReason for Visit: Recheck [92] Cmt: 3 weeks 6 days post left elbow dislocation-see phone encounter, xrayPrimary Visit Diagnosis:Dislocation of left elbow, initial encounter [S53.105A] Other Visit Diagnoses:Elbow stiffness, left [M25.622] Ulnar neuropathy at elbow of left upper extremity [G56.22] Left elbow pain [M25.522]Order(s):MRI ELBOW WO IVCON LT [[id number]] Order #: [id number] List As Of Date: 03/21/2018(None) Status:Closed by LAWRENCE PENA MD on 03/21/18 [facility] PROGRESSon 03-21-2018 Protein mass conc HNO ID: [id number] thor: Lawrence Mac: (none)Author Type: PhysicianType: Progress NotesFiled: 03/21/2018 12:42 PMNote Text:Lawrence Pena [place] [facility]OSPITALepartment of PvzyblzfzykjFseiafaauzdc[address] [place] [address]Xbix: [phone] Qatxki 2017CHIEF COMPLAINT: Recheck (3 weeks 6 days post left elbow dislocation-seephone encounter, xray)HPI: Mr. Britt Gutierrez is a 17 year old male Who is just shy of 4 weeksstatus post elbow dislocation after he fell from a trampoline. He hadbeen undergoing occupational therapy and doing relatively well, however hehad a bit of a setback from his early gains. He is having a difficulttime with extension. Occupational therapist thought he should be doingbetter at this time and is here for earlier follow-up. He's been icingand going through his motion program. Elbow was reported as sore andpainful between 3 and 5 out of 10 depending on his activities. He doesreport some very mild and at times tingling in the small and ring fingersbut this is more dependent on some different positions and motions of thearm.ASSESSMENT:S53.105A Dislocation of left elbow, initial encounter (primary encounterdiagnosis)M25.622 Elbow stiffness, leftG56.22 Ulnar neuropathy at elbow of left upper extremityPLAN:Though his ulnar nerve symptoms are rather minor, with his setback withmotion, and somewhat of a mechanical block feeling to the elbow, myrecommendation is for an MRI. I will review his case with Dr. Villa,And likely get up to see him for further care.FOLLOW UP INSTRUCTIONS:Plan as above, we will discuss with the family after I review the case.OBJECTIVE:Mr. Britt Gutierrez is a pleasant 17 year old in no apparent distress.Gen:There were no vitals taken for this visit. nl development, non obese,no deformitiesENT: Normocephalic, normal hearing, moist mucosaCV: Pulses:Radial= 2+ and symmetric, capillary refill < 2 secs, noperipheral edema/varicositiesSkin: no rash, bruising or lesions. Good turgor.Psych: cooperative and appropriate, alert and oriented x 3, good mood andaffect.Musculoskeletal:L eft elbow with some mild persistent swelling over the medial elbow andresolving ecchymoses in the distal brachium and upper forearm. He ismildly tender but not too bad about the bony landmarks. He has rathergood flexion with only lacking 20?Of terminal. Extension however is quitelimited at about 50 or 60? lacking full extension. Pronation andsupination is rather good in the forearm. Subjectively, sensation isintact in the median, and ulnar nerve distribution. Wrist flexionextension, finger abduction and adduction appear intact as well.IMAGING:IMPRESSION: Limited study due to patient positioning. ?Periosteal newbone formation suggests healing of a distal humeral fracture as well asan avulsion fracture of the medial epicondyle. ?Comparison with prioroutside radiographs would be helpful to fully evaluate the originalfracture.Transcript ionist: AVERY ?Transcribe Date/Time: Mar ?9:08ADictated by : ROSELYN DANIELSON MDThis examination was interpreted and the report reviewed andelectronically signed by:ROSELYN DANIELSON MD on Mar ?9:10AM ?ESTResults-Findings* * *Final Report* * *DATE OF EXAM: Mar ?8:07AM ?WRX ? 5322 ?- ?XR ELBOW 2V AP/LAT LT ?/ REASON: Unspecified dislocation of left ulnohumeral joint,subsequent encounter?? ?* * * * Physician Interpretation * * * *?TECHNIQUE: ? ? ?XR ELBOW 2V AP/LAT LT -EXAM DATE: ?03/21/2018 8:07 AMCLINICAL HISTORY: ?Unspecified dislocation of left ulnohumeral joint,subsequent encounterCOMPARISON: NoneFINDINGS: The study is markedly limited due to positioning on the APview. ?The patient is unable to straighten the arm. ?There is an evulsionfracture of the medial epicondyles with adjacent soft tissue swelling andperiosteal new bone formation. ?In addition, there is periosteal new boneinformation along the distal humerus.Supporting Subjective Information Below:Past Medical History: No past medical history on file.Past Surgical History:PAST SURGICAL HISTORYProcedure Laterality Date- TONSILLECTOMY HXFamily History: No family history on file.Social History:Social History Marital status: Single Spouse name: Years of education: Number of children:Social History Main Topics Smoking status: Never Smoker Smokeless tobacco: Never Used Alcohol use: No Drug use: NoMedications:No current outpatient prescriptions on file.No current facility-administered medications for this visit.Allergies: Patient has no known allergies.ROS:General (negative for fatigue, malaise, weight loss/gain)HEENT (negative for headache, earache, recent vision changes, sinus pain,sore throat) Respiratory (no recent shortness of breath, hemoptysis)CV (negative for chest tightness, palpitations)Musculoskeleta l (see HPI)Psych (no depression, anxiety)This note was partially generated using adQ voice recognition system,and there may be some incorrect words, spellings, and punctuation thatwere not noted in checking the note before saving.Lawrence Pena MD Normal [facility] Protein mass conc HNO ID: [id number] thor: Shwetha Muniz RNService: (none)Author Type: (none)Type: Progress NotesFiled: 03/21/2018 12:42 PMNote Text:AMB ROOMING INTAKE FLOWSHEET DATARisk ScreeningDo you have concerns about personal safety or safety in the home?: NoPainPain Score: (3-5)Pain Location: Elbow-LeftDescription: (sore)Duration Amount of Time: 3Duration Units: Weeks (6 days)Frequency: ContinuousIntervention: ColdPatient presents with:Recheck: 3 weeks 6 days post left elbow dislocation-see phone encounter,xrayPt. presents with mother. OT felt he has not been progressing as much ashoped, and is still at negative 60 ROM. He has been icing with somerelief of discomfort with ice, but has been taking nothing for pain. Normal [facility] Protein mass conc HNO ID: [id number] thor: Quynh Crespo (Rt) Emmett Li: (none)Author Type: TechnicianType: Progress NotesFiled: 03/21/2018 8:06 AMNote Text: Radiology Service Progress NotePATIENT NAME: Britt Torres: [id number] OF SERVICE: March 21, 2018TIME: 8:02 AMPATIENT IDENTITY VERIFICATION COMPLETED USING TWO (2) METHODS: Patientconfirmed name verbally and Date of .PATIENT GENDER DATA: MalePATIENT RELEVANT IMPLANT DATA REVIEWED: Not ApplicableRADIOLOGY DEPARTMENT: General X-ray: Exam(s) Completed: Upper ExtremityX-Ray(s): Elbow, left :PERIPHERAL IV DATA: Not applicableSIGNED BY: Quynh Li, [facility] 2017 8:02 AM [facility] XR ELBOW 2V AP/LAT LTon XR ELBOW 2V AP/LAT LT * * *Final Report* * *DATE OF EXAM: Mar 21 2018 8:07AM WRX 5322 - XR ELBOW 2V AP/LAT LT / REASON: Unspecified dislocation of left ulnohumeral joint, subsequent encounter * * * * Physician Interpretation * * * * TECHNIQUE: XR ELBOW 2V AP/LAT LT -EXAM DATE: 03/21/2018 8:07 AMCLINICAL HISTORY: Unspecified dislocation of left ulnohumeral joint, subsequent encounterCOMPARISON: NoneFINDINGS: The study is markedly limited due to positioning on the AP view. The patient is unable to straighten the arm. There is an evulsion fracture of the medial epicondyles with adjacent soft tissue swelling and periosteal new bone formation. In addition, there is periosteal new bone information along the distal humerus.IMPRESSION: Limited study due to patient positioning. Periosteal new bone formation suggests healing of a distal humeral fracture as well as an avulsion fracture of the medial epicondyle. Comparison with prior outside radiographs would be helpful to fully evaluate the original fracture.Engineering Technical Specialist: PSCB Transcribe Date/Time: Mar 21 2018 9:08ADictated by : ROSELYN DANIELSON MDThisuyapa examination was interpreted and the report reviewed and electronically signed by: ROSELYN DANIELSON MD on Mar 21 2018 9:10AM [id number] [facility] CNOVon 02-25-2018 CNOV Office Visit (ORTHWS) -------BRITT GUTIERREZ ([id number]) 02 MDate Time Provider Department02/25/18 1:40 PM MOJGAN HUSSEIN (PA) During your visit today, we recorded the following information about you:Kourtney Buckley Mnasi 02/25/2018 4:10 PM SignedAMB ROOMING INTAKE FLOWSHEET DATARisk ScreeningDo you have concerns about personal safety or safety in the home?: NoPainPain Score: 10Pain Location: Elbow-LeftDescription: Sore, TightnessDuration Amount of Time: 3Duration Units: DaysFrequency: IntermittentIntervention: SplintingPatient here today for evaluation of left elbow dislocation. States he jumpedout of a tree onto the trampoline on Sunday. [facility]. He is right hand dominant. Mother states she was contacted onSaturday and told to have our office examine wrist for possible fracture.Mojgan Hussein PA-C 02/25/2018 4:10 PM BERNARDO Jamesepartment of LvzeywzvywbvTmcieffhtalf[address] [facility] HospitaloostLittle [facility] [address]Gpxq: [phone] Rgcf 2017CHIEF COMPLAINT: New Patient (Left elbow dislocation )HPI: Mr. Britt Gutierrez is a 17 year old male. He presents with a left elbowinjury sustained on February 22, 2018. Patient was jumping from a tree and ontoa trampoline when he dislocated his left elbow. He was seen in the emergencyroom and the elbow was reduced. The patient was placed in a posterior splint.He complains of 3 out of 10 tightness and soreness at his elbow. The patientdenies any previous left elbow injuries. He is right-hand dominant. Iscurrently not participating in any sports but is very active, enjoys swimming.ASSESSMENT:S53.105 A Dislocation of left elbow, initial encounter (primary encounterdiagnosis)PLAN: We will get the patient into see occupational therapy to start working ongentle range of motion exercises. I would also like occupational therapy tomake him a posterior Orthoplast splint. Discussed with patient that he mayremove splint to do his range of motion exercises and also for hygienepurposes.FOLLOW UP INSTRUCTIONS:Following occupational therapy or in 2-3 weeks.Mr. Britt Gutierrez was advised as to contrast therapies and/or to takeanalgesics/anti-inflamm atories as needed and all contraindications werereviewed.OBJECTIVE:Mr. Britt Gutierrez is a pleasant 17 year old in no apparent distress.Gen:There were no vitals taken for this visit. nl development, non obese, nodeformitiesENT: Normocephalic, normal hearing, moist mucosaCV: Pulses:Radial= 2+ and symmetric, capillary refill < 2 secs, no peripheraledema/varicositie sSkin: no rash, bruising or lesions. Good turgor.Psych: cooperative and appropriate, alert and oriented x 3, good mood andaffect.Musculoskeletal:l eft Elbow:- There is bruising about the elbow- The skin is normal- There is swelling about the elbow- There is tenderness over the lateral epicondyle- There is tenderness over the medial epicondyle- There is tenderness over the olecranon- There is tenderness over the triceps insertion- There is tenderness over the radial head- Tinels sign over the ulnar nerve is negative- Sensation in the hand is normal- The distal biceps tendon is is tender but intact- Extension is to 40 degrees - Extension is painful- Flexion is to 120 - Flexion is painful- Pronation is to 160 - Pronation is non-painful- Supination is to 160 - Supination is non-painfulIMAGING:EXAM: ?ELBOW ?2V AP/LAT LEFT?HISTORY: ?Postreduction left elbow dislocation.?COMPARISON: ?02/22/2018?FINDINGS: ?See impression?IMPRESSION:?Subo ptimal positioning on the attempted frontal view limits exam. ?However,lateral view demonstrates apparent successful reduction of the left elbowdislocation. ?No acute displaced fracture is visualized on this exam. ?There issoft tissue swelling. ?Prominent anterior fat pad is visualized, suggestingjointfluid.Addend um Begins* * * * * * * * ORIGINAL REPORT * * * * * * * *HISTORY: Elbow trauma, fx suspected, initial exam?RESULT: Frontal and lateral views of the left elbow. ?2 images are provided forinterpretation. ? ? ? There is complete dislocation of the elbow; both theolecranon and the radial head are dislocated from the distal humerus, withrotated?positioning. ?There appears to be associated osseous fragments; evaluation islimited.?Frontal and lateral views of the left wrist. ?2 images are provided forinterpretation. ?On the lateral view, there is suggestion of corticalirregularity?in the volar aspect of the distal epiphysis of the left radius. ?However, thisis?not apparent on the frontal view.???IMPRESSION:?1. ?Left elbow: ?Complete dislocation. ?Osseous fragments suspected. ?Advancedimaging should be considered.2. ?Left wrist: ?Question injury in the distal epiphysis of the left radius,seenonly on the lateral view.* * * * * * * * ADDENDUM #1 * * * * * * * *COMMUNICATION: ?Communicated with: ?Dr. Helio Zurita at 643 hours on02/23/2018 regarding the possibility of injury in the distal epiphysis/physisofthe left radius.Addendum EndsHISTORY: Elbow trauma, fx suspected, initial exam?RESULT: Frontal and lateral views of the left elbow. ?2 images are provided forinterpretation. ? ? ? There is complete dislocation of the elbow; both theolecranon and the radial head are dislocated from the distal humerus, withrotated?positioning. ?There appears to be associated osseous fragments; evaluation islimited.?Frontal and lateral views of the left wrist. ?2 images are provided forinterpretation. ?On the lateral view, there is suggestion of corticalirregularity?in the volar aspect of the distal epiphysis of the left radius. ?However, thisis?not apparent on the frontal view.???IMPRESSION:?1. ?Left elbow: ?Complete dislocation. ?Osseous fragments suspected. ?Advancedimaging should be considered.2. ?Left wrist: ?Question injury in the distal epiphysis of the left radius,seenonly on the lateral view.Supporting Subjective Information Below:Past Medical History: No past medical history on file.Past Surgical History:PAST SURGICAL HISTORYProcedure Laterality Date- TONSILLECTOMY HXFamily History: No family history on file.Social History:Social History Marital status: Single Spouse name: Years of education: Number of children:Social History Main Topics Smoking status: Never Smoker Smokeless tobacco: Never Used Alcohol use: No Drug use: NoMedications:No current outpatient prescriptions on file.No current facility-administered medications for this visit.Allergies: Patient has no known allergies.ROS:General (negative for fatigue, malaise, weight loss/gain)HEENT (negative for headache, earache, recent vision changes, sinus pain, sorethroat) Respiratory (no recent shortness of breath, hemoptysis)CV (negative for chest tightness, palpitations)Musculoskeleta l (see HPI)Psych (no depression, anxiety)This note was partially generated using adQ voice recognition system, andthere may be some incorrect words, spellings, and punctuation that were notnoted in checking the note before saving.MOHSEN Iglesias-CReferring Provider: LAYTON ZURITA [[id number]]Allergies As of Date: 02/25/2018(No Known Allergies)Date Reviewed: 02/25/2018Reviewed by: Mojgan Hussein (Pa) - Fully AssessedReason for Visit: New Patient [172] Cmt: Left elbow dislocationReason For Visit History RecordedPrimary Visit Diagnosis:Dislocation of left elbow, initial encounter [S53.105A]Order(s):CONSULT TO MED ADMIN [[id number]] Order #: [id number]: 1Problem List As Of Date: 02/25/2018(None) Status:Closed by MOJGAN HUSSEIN PA-C on 02/25/18 Normal [facility] PROGRESSon 02-25-2018 Protein mass conc HNO ID: [id number] thor: Mojgan Hussein (Pa)Service: (none)Author Type: Physician AssistantType: Progress NotesFiled: 02/25/2018 4:10 PMNote Text:BERNARDO Iglesiasepartment of FyayhhtyzuegEqjxhbtdiekb[address] [facility] [address]Tduz: [phone] Wiwi 2017CHIEF COMPLAINT: New Patient (Left elbow dislocation )HPI: Mr. Britt Gutierrez is a 17 year old male. He presents with a leftelbow injury sustained on February 22, 2018. Patient was jumping from atree and onto a trampoline when he dislocated his left elbow. He was seenin the emergency room and the elbow was reduced. The patient was placedin a posterior splint. He complains of 3 out of 10 tightness and sorenessat his elbow. The patient denies any previous left elbow injuries. He isright-hand dominant. Is currently not participating in any sports but isvery active, enjoys swimming.ASSESSMENT:S53.105 A Dislocation of left elbow, initial encounter (primary encounterdiagnosis)PLAN: We will get the patient into see occupational therapy to startworking on gentle range of motion exercises. I would also likeoccupational therapy to make him a posterior Orthoplast splint. Discussedwith patient that he may remove splint to do his range of motion exercisesand also for hygiene purposes.FOLLOW UP INSTRUCTIONS:Following occupational therapy or in 2-3 weeks.Mr. Britt Gutierrez was advised as to contrast therapies and/or to takeanalgesics/anti-inflamm atories as needed and all contraindications werereviewed.OBJECTIVE:Mr. Britt Gutierrez is a pleasant 17 year old in no apparent distress.Gen:There were no vitals taken for this visit. nl development, non obese,no deformitiesENT: Normocephalic, normal hearing, moist mucosaCV: Pulses:Radial= 2+ and symmetric, capillary refill < 2 secs, noperipheral edema/varicositiesSkin: no rash, bruising or lesions. Good turgor.Psych: cooperative and appropriate, alert and oriented x 3, good mood andaffect.Musculoskeletal:l eft Elbow:- There is bruising about the elbow- The skin is normal- There is swelling about the elbow- There is tenderness over the lateral epicondyle- There is tenderness over the medial epicondyle- There is tenderness over the olecranon- There is tenderness over the triceps insertion- There is tenderness over the radial head- Tinels sign over the ulnar nerve is negative- Sensation in the hand is normal- The distal biceps tendon is is tender but intact- Extension is to 40 degrees - Extension is painful- Flexion is to 120 - Flexion is painful- Pronation is to 160 - Pronation is non-painful- Supination is to 160 - Supination is non-painfulIMAGING:EXAM: ?ELBOW ?2V AP/LAT LEFT?HISTORY: ?Postreduction left elbow dislocation.?COMPARISON: ?02/22/2018?FINDINGS: ?See impression?IMPRESSION:?Subo ptimal positioning on the attempted frontal view limits exam.?However,lateral view demonstrates apparent successful reduction of the left elbowdislocation. ?No acute displaced fracture is visualized on this exam.?There issoft tissue swelling. ?Prominent anterior fat pad is visualized,suggesting jointfluid.Addendum Begins* * * * * * * * ORIGINAL REPORT * * * * * * * *HISTORY: Elbow trauma, fx suspected, initial exam?RESULT: Frontal and lateral views of the left elbow. ?2 images areprovided forinterpretation. ? ? ? There is complete dislocation of the elbow; both theolecranon and the radial head are dislocated from the distal humerus, withrotated?positioning. ?There appears to be associated osseous fragments;evaluation islimited.?Frontal and lateral views of the left wrist. ?2 images are provided forinterpretation. ?On the lateral view, there is suggestion of corticalirregularity?in the volar aspect of the distal epiphysis of the left radius. ?However,this is?not apparent on the frontal view.???IMPRESSION:?1. ?Left elbow: ?Complete dislocation. ?Osseous fragments suspected.?Advancedimaging should be considered.2. ?Left wrist: ?Question injury in the distal epiphysis of the leftradius, seenonly on the lateral view.* * * * * * * * ADDENDUM #1 * * * * * * * *COMMUNICATION: ?Communicated with: ?Dr. Helio Zurita at 643 hours on02/23/2018 regarding the possibility of injury in the distalepiphysis/physis ofthe left radius.Addendum EndsHISTORY: Elbow trauma, fx suspected, initial exam?RESULT: Frontal and lateral views of the left elbow. ?2 images areprovided forinterpretation. ? ? ? There is complete dislocation of the elbow; both theolecranon and the radial head are dislocated from the distal humerus, withrotated?positioning. ?There appears to be associated osseous fragments;evaluation islimited.?Frontal and lateral views of the left wrist. ?2 images are provided forinterpretation. ?On the lateral view, there is suggestion of corticalirregularity?in the volar aspect of the distal epiphysis of the left radius. ?However,this is?not apparent on the frontal view.???IMPRESSION:?1. ?Left elbow: ?Complete dislocation. ?Osseous fragments suspected.?Advancedimaging should be considered.2. ?Left wrist: ?Question injury in the distal epiphysis of the leftradius, seenonly on the lateral view.Supporting Subjective Information Below:Past Medical History: No past medical history on file.Past Surgical History:PAST SURGICAL HISTORYProcedure Laterality Date- TONSILLECTOMY HXFamily History: No family history on file.Social History:Social History Marital status: Single Spouse name: Years of education: Number of children:Social History Main Topics Smoking status: Never Smoker Smokeless tobacco: Never Used Alcohol use: No Drug use: NoMedications:No current outpatient prescriptions on file.No current facility-administered medications for this visit.Allergies: Patient has no known allergies.ROS:General (negative for fatigue, malaise, weight loss/gain)HEENT (negative for headache, earache, recent vision changes, sinus pain,sore throat) Respiratory (no recent shortness of breath, hemoptysis)CV (negative for chest tightness, palpitations)Musculoskeleta l (see HPI)Psych (no depression, anxiety)This note was partially generated using adQ voice recognition system,and there may be some incorrect words, spellings, and punctuation thatwere not noted in checking the note before saving.Mojgan Hussein PA-C Normal [facility] Protein mass conc HNO ID: [id number] thor: Kourtney Diaz: (none)Author Type: (none)Type: Progress NotesFiled: 02/25/2018 4:10 PMNote Text:AMB ROOMING INTAKE FLOWSHEET DATARisk ScreeningDo you have concerns about personal safety or safety in the home?: NoPainPain Score: 3/10Pain Location: Elbow-LeftDescription: Sore, TightnessDuration Amount of Time: 3Duration Units: DaysFrequency: IntermittentIntervention: SplintingPatient here today for evaluation of left elbow dislocation. States hejumped out of a tree onto the trampoline on Sunday. He was [facility] the injury. He is right hand dominant. Mother states she wascontacted on Sunday and told to have our office examine wrist forpossible fracture. [facility] ED NOTEon 02-23-2018 ED NOTE HNO ID: [id number] Author: Kourtney Platt RN Service: Emergency Medicine Author Type: Registered Nurse Type: ED Notes Filed: 02/23/2018 1:40 AM Note Text: Pt reports feel better, nausea is gone pt dc'd home with parents. Copy of films provided. [facility] ED NOTE HNO ID: [id number] Author: Kourtney Platt RN Service: Emergency Medicine Author Type: Registered Nurse Type: ED Notes Filed: 02/23/2018 1:39 AM Note Text: IV dc'd, pt vomited 100ml clear fluid. Dr. Sarmiento informed. [facility] ED NOTE HNO ID: [id number] thor: LM Gonsales Rnervice: Emergency MedicineAuthor Type: Registered NurseType: ED NotesFiled: 02/23/2018 1:39 AMNote Text: Patient informed: the name of medication, why we are giving it, possibleside effects, what they may expect to feel, and was offered a chance toask questions, prior to the administration of zofran. [facility] ED NOTE HNO ID: [id number] Author: Kourtney Platt RN Service: Emergency Medicine Author Type: Registered Nurse Type: ED Notes Filed: 02/23/2018 1:38 AM Note Text: Pt up and ambulated to bathroom, gait steady, tolerated well [facility] ED NOTE HNO ID: [id number] Author: Kourtney Platt RN Service: Emergency Medicine Author Type: Registered Nurse Type: ED Notes Filed: 02/23/2018 1:37 AM Note Text: Pt tolerated po water 8 oz. [facility] ED NOTE HNO ID: [id number] thor: LM Gonsales Rnervice: Emergency MedicineAuthor Type: Registered NurseType: ED NotesFiled: 02/23/2018 12:16 AMNote Text: Pt awake and alert, but still slightly drowsy. OCL placed per Dr. Sarmiento.Cap refill <2 seconds. Pt tolerated well, parents remain at bedside. [facility] ED NOTE HNO ID: [id number] Author: Ellen Liriano RN Service: Emergency Medicine Author Type: Registered Nurse Type: ED Notes Filed: 02/22/2018 11:20 PM Note Text: See moderate sedation record Normal [facility] ED NOTE HNO ID: [id number] Author: Ellen Liriano RN Service: Emergency Medicine Author Type: Registered Nurse Type: ED Notes Filed: 02/22/2018 11:11 PM Note Text: Monitor applied. Respiratory at bedside Normal [facility] ED NOTE HNO ID: [id number] thor: LM [place] Rnervice: Emergency MedicineAutr Type: Registered NurseType: ED NotesFiled: 02/22/2018 11:09 PMNote Text: Patient informed: the name of medication, why we are giving it, possibleside effects, what they may expect to feel, and was offered a chance toask questions, prior to the administration of ketamine Normal [facility] ED NOTE HNO ID: [id number] Author: Ellen Liriano RN Service: Emergency Medicine Author Type: Registered Nurse Type: ED Notes Filed: 02/22/2018 11:09 PM Note Text: Consent for conscious sedation obtained Normal [facility] ED NOTE HNO ID: [id number] Author: Kourtney Platt, RN Service: Emergency Medicine Author Type: Registered Nurse Type: ED Notes Filed: 02/22/2018 10:51 PM Note Text: Returned from xray Normal [facility] ED NOTE HNO ID: [id number] Author: Kourtney Platt, RN Service: Emergency Medicine Author Type: Registered Nurse Type: ED Notes Filed: 02/22/2018 10:35 PM Note Text: Pt to xray per cart Normal [facility] ED NOTE HNO ID: [id number] Author: Stacie (Rn) THEODORE Hudson Service: Emergency Medicine Author Type: Registered Nurse Type: ED Notes Filed: 02/22/2018 10:12 PM Note Text: Fell onto trampoline. Normal [facility] ED PROV NOTEon 02-23-2018 Protein mass conc HNO ID: [id number] thor: Layton Zurita, DOService: Emergency MedicineAuthor Type: PhysicianType: ED Provider NotesFiled: 02/23/2018 8:07 AMNote Text:ED Provider NotePatient Name: Britt GarciaRN: [id number] DATE: 02/22/18HistoryPatient presents with:Arm InjuryBritt Gutierrez is a 17 year old male with history of no chronic medicalproblems who presents with Arm Injury. Patient took nothing for this priorto arrival. - Symptoms began minutes prior to arrival. - Severity: severe - Timing: constant - Quality: sharp and sore - Arm Injury is exacerbated by movement palpation. - Arm Injury is not exacerbated by rest. - Symptoms are associated with elbow pain. - Symptoms are not associated with fever, rash, shortness of breath andvomiting. - Improved by nothing. - Not improved by rest.Patient jumped from a tree onto a trampoline trying to catch himself withhis left upper extremity. He is right handed. He has had pain since thefall with deformity to his elbow.No past medical history on file.PAST SURGICAL HISTORYProcedure Laterality Date- TONSILLECTOMY HXNo family history on file.Social HistorySocial History Main Topics- Smoking status: Never Smoker- Smokeless tobacco: Never Used- Alcohol use Not on file- Drug use: Unknown- Sexual activity: Not on fileALLERGIESNo Known AllergiesReview of SystemsConstitutional: Negative for chills and fever.HENT: Negative for sore throat and trouble swallowing.Respiratory: Negative for shortness of breath and stridor.Cardiovascular: Negative for chest pain and leg swelling.Gastrointestinal: Negative for abdominal pain, nausea and vomiting.Genitourinary: Negative for flank pain.Musculoskeletal: Positive for arthralgias (left elbow). Negative for backpain, neck pain and neck stiffness.Skin: Negative for rash and wound.Neurological: Negative for syncope, weakness, numbness and headaches.Psychiatric/Behav ioral: Negative for agitation and confusion.Physical ExamBP 134/73 Pulse 67 Temp (Src) 98.8 (Temporal Artery) Resp 18 Ht 5'8 (1.73m) Wt 130 lb (59.0kg) SpO2 100% BMI 19.77 kg/(m2).Physical ExamConstitutional: He is oriented to person, place, and time. He appearswell-developed and well-nourished. No distress.HENT:Head: Normocephalic and atraumatic.Right Ear: External ear normal.Left Ear: External ear normal.Mouth/Throat: Oropharynx is clear and moist.Eyes: Conjunctivae and EOM are normal. Pupils are equal, round, andreactive to light. Right eye exhibits no discharge. Left eye exhibits nodischarge. No scleral icterus.Neck: Normal range of motion. No JVD present.Cardiovascular: Normal rate, regular rhythm and intact distal pulses.Pulmonary/Chest: Effort normal and breath sounds normal. No stridor.Abdominal: Soft. Bowel sounds are normal. He exhibits no distension. Thereis no tenderness.Musculoskeletal: Left shoulder: He exhibits normal range of motion and no tenderness. Left elbow: He exhibits decreased range of motion, swelling anddeformity. He exhibits no laceration. Tenderness found. Radial head andolecranon process tenderness noted. Left wrist: He exhibits no tenderness, no bony tenderness and noswelling. Cervical back: He exhibits normal range of motion and no tenderness.Neurological: He is alert and oriented to person, place, and time.Skin: Skin is warm and dry. Capillary refill takes less than 2 seconds. Norash noted.Psychiatric: He has a normal mood and affect. His behavior is normal.Diagnostic TestingED Labs Ordered and Reviewed - No data to displayORTHOPEDIC INJURY - FRACTURE/DISLOCATIONDate/Ti me: 02/23/2018 11:35 PMPerformed by: Sergio ZURITAhorized by: Maya ZURITA: Consent obtained: Written Consent given by: Parent Risks discussed: Nerve damage, pain and vascular damage Alternatives discussed: ReferralInjury: Injury location: Elbow Elbow injury location: L elbow Elbow fracture type comment: DislocationPre-procedure assessment: Neurological function: normal Distal perfusion: normal Range of motion: reducedSedation: Sedation type: Moderate (conscious) sedationProcedure details: Manipulation performed: yes Reduction successful: yes X-ray confirmed reduction: yes Immobilization: Sling and splint Splint type: Long arm Supplies used: Ortho-Glass, elastic bandage and cotton paddingPost-procedure assessment: Neurological function: normal Distal perfusion: normal Range of motion: normal Patient tolerance of procedure: Tolerated well, no immediatecomplicationsED Course / Clinical ImpressionClinical Impressions as of Feb 23 15Dislocation of left elbow, initial encounterMDM / Disposition / Plan X-ray ordered.X-ray shows dislocation of the left elbow.I discussed results with the patient and parents. I discussed reduction. Ioffered transfer to [facility] for reduction vs me reducing it here.Parents are fine with me reducing it here.Patient's left elbow was reduced and splinted. Good pulses prior to andafter reduction. Long arm splint placed to immobilize the elbow and wrist.Patient has an orthopedic surgeon already at [facility], whom hewill follow up with them.Instructed to return to the ED for new/worsening symptoms.[facility] radiologist called at 650 am to discuss the patient has asuspicious are on just one view of his left wrist x-ray and should havefurther imaging when he sees the orthopedic to evaluate further.Will call patient's mom in the morning to notify her of this and relay toorthopedic when he sees them in the office.Additional Tests or Interventions: SedationProcedural SedationProcedure Performed By: Layton Jonas Supervised By:Purpose/Procedure being performed: Reduction of left elbowMedications Used: KetamineIntra-service times:Start Time (first medication given): 02/22/2018 11:36 PMStop Time (end of face -> face encounter): 02/22/2018 11:40 PMI was present for and supervised the procedure detailed above.DispositionThe patient was discharged.Counseled patient, father and mother regarding radiology results andsuspected diagnosis. As well as the need for follow-up. Discharged homewith verbal and written instructions. They were instructed to return asneeded for persistent or worsening symptoms or any new concerns.Condition at disposition is stable.SIGNATURE: Layton Zurita Yara Jermaine, DO02/23/18 0807 Normal [facility] ELBOW 2V AP/LAT LEFTon 02-23 ELBOW 2V AP/LAT LEFT Performed at [facility] APPROVED BY: ELANA MIGUEL MD EXAM: ELBOW 2V AP/LAT LEFT HISTORY: Postreduction left elbow dislocation. COMPARISON: 02/22/2018 FINDINGS: See impression IMPRESSION: Suboptimal positioning on the attempted frontal view limits exam. However, lateral view demonstrates apparent successful reduction of the left elbow dislocation. No acute displaced fracture is visualized on this exam. There is soft tissue swelling. Prominent anterior fat pad is visualized, suggesting joint fluid. Normal [facility] ELBOW SPECIAL VIEWS AP/LAT/O THER LEFTon 02-23-2018 ELBOW SPECIAL VIEWS AP/LAT/OTHER LEFT Performed at [facility] APPROVED BY: DARWIN PERALES MD Addendum Begins* * * * * * * * ORIGINAL REPORT * * * * * * * *HISTORY: Elbow trauma, fx suspected, initial exam RESULT: Frontal and lateral views of the left elbow. 2 images are provided for interpretation. There is complete dislocation of the elbow; both the olecranon and the radial head are dislocated from the distal humerus, with rotated positioning. There appears to be associated osseous fragments; evaluation is limited. Frontal and lateral views of the left wrist. 2 images are provided for interpretation. On the lateral view, there is suggestion of cortical irregularity in the volar aspect of the distal epiphysis of the left radius. However, this is not apparent on the frontal view. IMPRESSION: 1. Left elbow: Complete dislocation. Osseous fragments suspected. Advanced imaging should be considered.2. Left wrist: Question injury in the distal epiphysis of the left radius, seen only on the lateral view. * * * * * * * * ADDENDUM #1 * * * * * * * *COMMUNICATION: Communicated with: Dr. Helio Zurita at 643 hours on 02/23/2018 regarding the possibility of injury in the distal epiphysis/physis of the left radius.Addendum EndsHISTORY: Elbow trauma, fx suspected, initial exam RESULT: Frontal and lateral views of the left elbow. 2 images are provided for interpretation. There is complete dislocation of the elbow; both the olecranon and the radial head are dislocated from the distal humerus, with rotated positioning. There appears to be associated osseous fragments; evaluation is limited. Frontal and lateral views of the left wrist. 2 images are provided for interpretation. On the lateral view, there is suggestion of cortical irregularity in the volar aspect of the distal epiphysis of the left radius. However, this is not apparent on the frontal view. IMPRESSION: 1. Left elbow: Complete dislocation. Osseous fragments suspected. Advanced imaging should be considered.2. Left wrist: Question injury in the distal epiphysis of the left radius, seen only on the lateral view. Normal [facility] WRIST INJURY 4V PA/LAT/OBL/S CAPH LEFTon 02-23-2018 WRIST INJURY 4V PA/LAT/OBL/SCAPH LEFT Performed at [facility] APPROVED BY: DARWIN PERALES MD Addendum Begins* * * * * * * * ORIGINAL REPORT * * * * * * * *HISTORY: Elbow trauma, fx suspected, initial exam RESULT: Frontal and lateral views of the left elbow. 2 images are provided for interpretation. There is complete dislocation of the elbow; both the olecranon and the radial head are dislocated from the distal humerus, with rotated positioning. There appears to be associated osseous fragments; evaluation is limited. Frontal and lateral views of the left wrist. 2 images are provided for interpretation. On the lateral view, there is suggestion of cortical irregularity in the volar aspect of the distal epiphysis of the left radius. However, this is not apparent on the frontal view. IMPRESSION: 1. Left elbow: Complete dislocation. Osseous fragments suspected. Advanced imaging should be considered.2. Left wrist: Question injury in the distal epiphysis of the left radius, seen only on the lateral view. * * * * * * * * ADDENDUM #1 * * * * * * * *COMMUNICATION: Communicated with: Dr. Helio Zurita at 643 hours on 02/23/2018 regarding the possibility of injury in the distal epiphysis/physis of the left radius.Addendum EndsHISTORY: Elbow trauma, fx suspected, initial exam RESULT: Frontal and lateral views of the left elbow. 2 images are provided for interpretation. There is complete dislocation of the elbow; both the olecranon and the radial head are dislocated from the distal humerus, with rotated positioning. There appears to be associated osseous fragments; evaluation is limited. Frontal and lateral views of the left wrist. 2 images are provided for interpretation. On the lateral view, there is suggestion of cortical irregularity in the volar aspect of the distal epiphysis of the left radius. However, this is not apparent on the frontal view. IMPRESSION: 1. Left elbow: Complete dislocation. Osseous fragments suspected. Advanced imaging should be considered.2. Left wrist: Question injury in the distal epiphysis of the left radius, seen only on the lateral view. Normal [facility] Encounters Encounter Date Encounter Type Care Provider Facility Start: 02-27-2022 End: 02-27-2022 ambulatory [facility] Facility:[facility] Start: 07-29-2018 End: 07-29-2018 Patient encounter procedure MAYANK SAWYER [facility] Start: 05-20-2018 End: 05-21-2018 Patient encounter LEV DAISY [facility] Start: 04-08-2018 End: 04-10-2018 Patient encounter LEV VILLA [facility] Start: 03-25-2018 End: 03-25-2018 Patient encounter LAWRENCE PENA [facility] Start: 03-21-2018 End: 03-22-2018 Patient encounter LAWRENCE PENA [facility] Start: 02-25-2018 End: 02-27-2018 Patient encounter MOJGAN HUSSEIN ([place]) [facility] Payers Date Payer Category Payer Self-pay 2022 Unknown [id number] 1974 Unknown [id number] Unknown [id number] Unknown [id number] Summary Purpose Family History No Family History Records FoundNo Family History Records FoundNo Family History Records FoundNo Family History Records Found Advance Directives No Advanced Directives Records FoundNo Advanced Directives Records FoundNo Advanced Directives Records FoundNo Advanced Directives Records Found Additional Source Comments (unrecognized sect ion and content) No Status Records FoundNo Status Records FoundNo Status Records FoundNo Status Records Found INFORMATION SOURCE (unrecogn ized section and content) DATE CREATED AUTHOR 02/23/2018 [facility] DATE CREATED AUTHOR AUTHOR'S ORGANIZ ATION 06/15/2018 [facility] DATE CREATED AUTHOR AUTHOR'S ORGANIZ ATION 07/31/2018 [facility] DATE CREATED AUTHOR AUTHOR'S ORGANIZ ATION 09/19/2022 [facility] FOR RECORDS PERTAINING TO PATIENTS WHO ARE OR HAVE BEEN ENROLLED IN A CHEMICAL DEPENDENCY/SUBSTANCEABUSE PROGRAM, SOME INFORMATION MAY BE OMITTED. This clinical summary was aggregated from multiple sources. Caution should be exercised in using it in the provision of clinical care. This summary normalizes information from multiple sources, and as a consequence, information in this document may materially change the coding, format and clinical context of patient data. In addition, data may be omitted in some cases. CLINICAL DECISIONS SHOULD BE BASED ON THE PRIMARY CLINICAL RECORDS. [employer] provides no warranty or guarantee of the accuracy or completeness of information in this document.
== END | disposition home or self-care (01) ==
LOC: MTRAD 13:50
PROVIDERS: PCP Family Medicine; Referring Provider Nurse Practitioner Family; Visit Provider Nurse Practitioner Family
DX: S43.402A Unspecified sprain of left shoulder joint, initial encounter (principal); X58.XXXA Exposure to other specified factors, initial encounter; M75.32 Calcific tendinitis of left shoulder
CPT/HCPCS: 73030